=== PATIENT | female | born 1970 | race Caucasian/White ===

== ENCOUNTER 2020-03-27 22:49 | Emergency (ER) | payer OTHER ==
[~2020-03-27 22:49] MED LIST: CLINDAMYCIN HC300 MG PO
[2020-03-27 23:47] LABS: BASO # 0.1 10*3/uL (0.0-0.1); BASO % 0.6 % (0.0-1.0); EOS # 0.2 10*3/uL (0.0-0.4); EOS % 2.1 % (1.0-4.0); HEMATOCRIT 43.7 % (37.0-47.0); LYMPH # 3.9 10*3/uL (1.3-4.4); LYMPH % 35.9 % (27.0-41.0); MEAN CELL VOLUME 85.4 fl (81.0-99.0); MEAN CORPUSCULAR HGB 28.1 pg (27.0-31.0); MEAN PLATELET VOLUME 10.3 fl (9.6-12.3); MONO # 0.6 10*3/uL (0.1-1.0); MONO % 5.3 % (3.0-9.0); NEUT # 6.1 10*3/uL (2.3-7.9); NEUT % 55.8 % (47.0-73.0); PLATELET COUNT AUTOMATED 239 10*3/uL (130-400); RED BLOOD COUNT 5.12 10*6/uL (4.10-5.10); RED CELL DISTRI WIDTH 13.2 % (0-14.5); WHITE BLOOD COUNT 10.9 10*3/uL (4.8-10.8)
[2020-03-28 00:01] LABS: ACT PARTIAL THROMBO TIME 29.5 SECONDS (20.0-32.1); INTERNATIONAL NORM RATIO 0.9 (2.0-3.5)
[2020-03-28 00:04] LABS: ALBUMIN 3.9 gm/dl (3.1-4.5); ALKALINE PHOSPHATASE 95 U/L (45-117); BUN 16 mg/dl (7-24); CHLORIDE 104 mmol/L (98-107); CREATININE 0.95 mg/dL (0.55-1.02); POTASSIUM 3.5 mmol/L (3.5-5.1); SGOT/AST 15 IU/L (3-35); SGPT/ALT 27 U/L (12-78); SODIUM 134 mmol/L (136-145)
[2020-03-28 00:06] LABS: TROPONIN I < 0.015 ng/ml (<0.045)
[2020-03-28] MEDS ORDERED: KENALOG 0.1% OI15 GM T (00:54)
== END 2020-03-28 01:39 | disposition home or self-care (01) ==
LOC: ED 22:49
PROVIDERS: Emergency Medicine
DX: R05 Cough (principal); R53.1 Weakness; R07.9 Chest pain, unspecified; Z20.828 Contact with and (suspected) exposure to other viral communicable diseases; Z88.2 Allergy status to sulfonamides; Z88.6 Allergy status to analgesic agent

== ENCOUNTER 2020-10-07 05:44 | Emergency (ER) | payer OTHER ==
[~2020-10-07] VITALS: Ht 177.8 cm; Wt 126.2 kg
[~2020-10-07 05:44] MED LIST changes: +KENALOG 0.1% OI15 GM T
[2020-10-07 06:21] LABS: BASO # 0.1 10*3/uL (0.0-0.1); BASO % 0.6 % (0.0-1.0); EOS # 0.1 10*3/uL (0.0-0.4); EOS % 0.6 % (1.0-4.0); LYMPH # 4.2 10*3/uL (1.3-4.4); LYMPH % 29.2 % (27.0-41.0); MEAN CELL VOLUME 79.9 fl (81.0-99.0); MEAN CORPUSCULAR HGB 22.8 pg (27.0-31.0); MEAN CORPUSCULAR HGB CONC 28.5 g/dl (33.0-37.0); MEAN PLATELET VOLUME 9.7 fl (9.6-12.3); MONO # 0.8 10*3/uL (0.1-1.0); MONO % 5.4 % (3.0-9.0); NEUT # 8.9 10*3/uL (2.3-7.9); NEUT % 62.2 % (47.0-73.0); NUCLEATED RED BLOOD CELL 0.1 % (0.0-0.0); PLATELET COUNT AUTOMATED 327 10*3/uL (130-400); RED BLOOD COUNT 3.38 10*6/uL (4.10-5.10); RED CELL DISTRI WIDTH 18.5 % (0-14.5); WHITE BLOOD COUNT 14.3 10*3/uL (4.8-10.8)
[2020-10-07 06:22] LABS: ALBUMIN 3.3 gm/dl (3.1-4.5); ALKALINE PHOSPHATASE 66 U/L (45-117); BUN 20 mg/dl (7-24); CHLORIDE 102 mmol/L (98-107); CREATININE 0.87 mg/dL (0.55-1.02); POTASSIUM 4.1 mmol/L (3.5-5.1); SGOT/AST 35 IU/L (3-35); SGPT/ALT 46 U/L (12-78); SODIUM 134 mmol/L (136-145); TOTAL PROTEIN 6.8 gm/dL (6.4-8.2)
[2020-10-07 07:09] LABS: BILIRUBIN Negative (Negative); BLOOD Negative (Negative); CLARITY Clear (Clear); COLOR Yellow (Yellow); GLUCOSE Negative (Negative); KETONE Negative (Negative); LEUKO ESTERASE Negative (Negative); NITRITE Negative (Negative); SPECIFIC GRAVITY 1.015 (1.001-1.030); UROBILINOGEN 0.2 E.U./dl (0.0-1.0)
[2020-10-07 07:15] LABS: BACTERIA TRACE; EPITHELIAL CELLS 0-2; WBC 0-2 wbc/hpf (0-5)
[2020-10-07 11:31] VITALS: BP 111/64
[2020-10-07 11:45] VITALS: BP 138/69
[2020-10-07 12:00] VITALS: BP 117/63
[2020-10-07 12:15] VITALS: BP 111/64
[2020-10-07 12:30] VITALS: BP 101/51
[2020-10-07 13:30] VITALS: BP 113/62
== END 2020-10-07 15:01 | disposition short-term general hospital (02) ==
LOC: ED 05:44
PROVIDERS: Internal Medicine
DX: K92.2 Gastrointestinal hemorrhage, unspecified (principal); D50.0 Iron deficiency anemia secondary to blood loss (chronic); N28.1 Cyst of kidney, acquired; Z88.2 Allergy status to sulfonamides; Z88.8 Allergy status to other drugs, medicaments and biological substances; Z79.899 Other long term (current) drug therapy; Z79.2 Long term (current) use of antibiotics; Z95.818 Presence of other cardiac implants and grafts

== ENCOUNTER 2022-02-10 08:50 | Emergency (ER) | payer OTHER ==
[~2022-02-10] VITALS: Ht 165.1 cm; Wt 101.6 kg
[2022-02-10 09:19] LABS: BASO % 0.5 % (0.0-1.0); EOS # 0.1 10*3/uL (0.0-0.4); EOS % 0.8 % (1.0-4.0); LYMPH # 1.9 10*3/uL (1.3-4.4); LYMPH % 22.3 % (27.0-41.0); MEAN CELL VOLUME 83.9 fl (81.0-99.0); MEAN CORPUSCULAR HGB 27.9 pg (27.0-31.0); MEAN CORPUSCULAR HGB CONC 33.3 g/dl (33.0-37.0); MEAN PLATELET VOLUME 10.2 fl (9.6-12.3); MONO # 0.4 10*3/uL (0.1-1.0); MONO % 5.2 % (3.0-9.0); NEUT # 5.9 10*3/uL (2.3-7.9); NEUT % 70.8 % (47.0-73.0); PLATELET COUNT AUTOMATED 249 10*3/uL (130-400); RED BLOOD COUNT 4.77 10*6/uL (4.10-5.10); RED CELL DISTRI WIDTH 13.2 % (0-14.5); WHITE BLOOD COUNT 8.3 10*3/uL (4.8-10.8)
[2022-02-10] MEDS ORDERED: BUPRENORPHINE-1 EAC2 SL (09:24)
[2022-02-10] MEDS ORDERED: LEVOTHYROXINE50 MCG PO (09:25)
[2022-02-10] MEDS ORDERED: DIAZEPAM2 MG PO (09:25)
[2022-02-10] MEDS ORDERED: CETIRIZINE HYDR10 MG PO (09:25)
[2022-02-10] MEDS ORDERED: DOCUSATE SOD100 MG PO (09:26)
[2022-02-10] MEDS ORDERED: GABAPENTIN400 MG PO ×2 (09:26→09:27)
[2022-02-10] MEDS ORDERED: MULTIVITAMIN1 EACH PO (09:32)
[2022-02-10 09:33] LABS: ACT PARTIAL THROMBO TIME 29.6 SECONDS (20.0-32.1); INTERNATIONAL NORM RATIO 0.9 (2.0-3.5)
[2022-02-10] MEDS ORDERED: TRAZODONE150 MG PO (09:33)
[2022-02-10] MEDS ORDERED: LISINOPRIL40 MG PO (09:34)
[2022-02-10] MEDS ORDERED: HYDROCHLOROTH12.5 M2 PO (09:34)
[2022-02-10] MEDS ORDERED: CLOPIDOGREL75 MG PO (09:35)
[2022-02-10] MEDS ORDERED: CYCLOBENZAPRINE10 MG PO (09:35)
[2022-02-10] MEDS ORDERED: SIMVASTATIN40 MG PO (09:35)
[2022-02-10 09:36] LABS: ALKALINE PHOSPHATASE 98 U/L (45-117); BUN 21 mg/dl (7-24); CHLORIDE 105 mmol/L (98-107); CREATININE 0.91 mg/dL (0.55-1.02); POTASSIUM 4.3 mmol/L (3.5-5.1); SGOT/AST 16 IU/L (3-35); SGPT/ALT 15 U/L (12-78); SODIUM 137 mmol/L (136-145); TOTAL PROTEIN 7.9 gm/dL (6.4-8.2)
[2022-02-10] MEDS ORDERED: PANTOPRAZOLE SO40 MG PO (09:36)
[2022-02-10] MEDS ORDERED: ASPIRIN CHEWABL81 MG PO (09:36)
[2022-02-10 12:05] LABS: BILIRUBIN Negative (Negative); BLOOD Trace-Lysed (Negative); CLARITY Clear (Clear); COLOR Yellow (Yellow); GLUCOSE Negative (Negative); KETONE Negative (Negative); LEUKO ESTERASE Negative (Negative); NITRITE Negative (Negative)
[2022-02-10 12:15] LABS: WBC 0-2 wbc/hpf (0-5)
[2022-02-10] MEDS ORDERED: Ipratropium Brom3 ML INH (15:13)
[2022-02-10] MEDS ORDERED: PREDNISONE50 MG PO (15:13)
[2022-02-10] MEDS ORDERED: ZITHROMAX250 MG PO (15:13)
[2022-02-10] MEDS ORDERED: MUCINEX1200 M1 PO (15:13)
== END 2022-02-10 15:20 | disposition home or self-care (01) ==
LOC: ED 08:50
PROVIDERS: Student in an Organized Health Care Education/Training Program
DX: J40 Bronchitis, not specified as acute or chronic (principal); J44.9 Chronic obstructive pulmonary disease, unspecified; Z88.1 Allergy status to other antibiotic agents; Z88.6 Allergy status to analgesic agent; Z79.899 Other long term (current) drug therapy; Z79.82 Long term (current) use of aspirin

== ENCOUNTER → 2022-12-10 | Outpatient (CLI) | payer OTHER ==
[~2022-12-10] MED LIST changes: +ASPIRIN CHEWABL81 MG PO; +BUPRENORPHINE-1 EAC2 SL; +CETIRIZINE HYDR10 MG PO; +CLOPIDOGREL75 MG PO; +CYCLOBENZAPRINE10 MG PO; +DIAZEPAM2 MG PO; +DOCUSATE SOD100 MG PO; +GABAPENTIN400 MG PO; +HYDROCHLOROTH12.5 M2 PO; +Ipratropium Brom3 ML INH; +LEVOTHYROXINE50 MCG PO; +LISINOPRIL40 MG PO; +MUCINEX1200 M1 PO; +MULTIVITAMIN1 EACH PO; +PANTOPRAZOLE SO40 MG PO; +PREDNISONE50 MG PO; +SIMVASTATIN40 MG PO; +TRAZODONE150 MG PO; +ZITHROMAX250 MG PO
[2022-12-10 16:50] LABS: BASO # 0.1 10*3/uL (0.0-0.1); BASO % 0.7 % (0.0-1.0); EOS # 0.2 10*3/uL (0.0-0.4); EOS % 2.6 % (1.0-4.0); HEMATOCRIT 45.5 % (37.0-47.0); LYMPH # 2.6 10*3/uL (1.3-4.4); LYMPH % 34.7 % (27.0-41.0); MEAN CORPUSCULAR HGB 26.8 pg (27.0-31.0); MEAN CORPUSCULAR HGB CONC 32.3 g/dl (33.0-37.0); MEAN PLATELET VOLUME 9.7 fl (9.6-12.3); MONO # 0.5 10*3/uL (0.1-1.0); MONO % 6.2 % (3.0-9.0); NEUT # 4.2 10*3/uL (2.3-7.9); NEUT % 55.5 % (47.0-73.0); PLATELET COUNT AUTOMATED 243 10*3/uL (130-400); RED BLOOD COUNT 5.48 10*6/uL (4.10-5.10); RED CELL DISTRI WIDTH 13.6 % (0-14.5); WHITE BLOOD COUNT 7.6 10*3/uL (4.8-10.8)
[2022-12-10 17:04] LABS: ALKALINE PHOSPHATASE 93 U/L (46-116); BUN 8 mg/dl (9-23); CHLORIDE 107 mmol/L (98-107); POTASSIUM 3.9 mmol/L (3.4-5.1); SGPT/ALT 8 U/L (10-49); TOTAL PROTEIN 7.4 gm/dL (6.0-8.0)
[2022-12-11 06:08] LABS: HBSAG Negative (Negative); HEP B CORE AB, IGM Negative (Negative); HEPATITIS C ANTIBODY Non Reactive (Non Reactive)
== END | disposition home or self-care (01) ==
LOC: LAB 16:29
PROVIDERS: ATTEND Nurse Practitioner Family
DX: F11.20 Opioid dependence, uncomplicated (principal)

== ENCOUNTER → 2023-02-26 | Outpatient (CLI) | payer OTHER | END | disposition home or self-care (01) | LOC: RESCLI 01:36 | PROVIDERS: ATTEND Internal Medicine | DX: I10 Essential (primary) hypertension (principal); I25.10 Atherosclerotic heart disease of native coronary artery without angina pectoris; J45.909 Unspecified asthma, uncomplicated; R26.2 Difficulty in walking, not elsewhere classified; F17.210 Nicotine dependence, cigarettes, uncomplicated; M06.9 Rheumatoid arthritis, unspecified; M54.9 Dorsalgia, unspecified; K21.9 Gastro-esophageal reflux disease without esophagitis; E03.9 Hypothyroidism, unspecified; K59.00 Constipation, unspecified; F41.8 Other specified anxiety disorders; F22 Delusional disorders; Z98.890 Other specified postprocedural states; Z88.2 Allergy status to sulfonamides; Z79.82 Long term (current) use of aspirin; Z79.899 Other long term (current) drug therapy ==

== ENCOUNTER 2023-05-28 13:36 | Emergency (ER) | payer OTHER ==
[~2023-05-28] VITALS: Ht 165.1 cm; Wt 85.7 kg
[~2023-05-28 13:36] MED LIST changes: -CORRECTOL5 M1 PO; -DIAZEPAM10 M1 PO; -LEFLUNOMIDE20 M1 PO; -TRAZODONE HYDR300 MG PO
[2023-05-28] MEDS ORDERED: LEFLUNOMIDE20 M1 PO (14:01)
== END 2023-05-28 15:30 | disposition left against medical advice (07) ==
LOC: ED 13:36
DX: G83.4 Cauda equina syndrome (principal); Z88.2 Allergy status to sulfonamides; Z88.6 Allergy status to analgesic agent; Z79.899 Other long term (current) drug therapy; Z53.29 Procedure and treatment not carried out because of patient's decision for other reasons

== ENCOUNTER → 2023-05-28 | Outpatient (CLI) | payer OTHER ==
[~2023-05-28] MED LIST changes: +CORRECTOL5 M1 PO; +DIAZEPAM10 M1 PO; +LEFLUNOMIDE20 M1 PO; +TRAZODONE HYDR300 MG PO
== END | disposition home or self-care (01) ==
LOC: RESCLI 01:16
PROVIDERS: ATTEND Internal Medicine
DX: M54.9 Dorsalgia, unspecified (principal); R53.83 Other fatigue; E03.9 Hypothyroidism, unspecified; F41.8 Other specified anxiety disorders; K21.9 Gastro-esophageal reflux disease without esophagitis; I10 Essential (primary) hypertension; M06.9 Rheumatoid arthritis, unspecified; I25.10 Atherosclerotic heart disease of native coronary artery without angina pectoris; J45.909 Unspecified asthma, uncomplicated; F17.210 Nicotine dependence, cigarettes, uncomplicated; K59.00 Constipation, unspecified; Z98.890 Other specified postprocedural states; Z88.2 Allergy status to sulfonamides; Z88.8 Allergy status to other drugs, medicaments and biological substances; Z79.899 Other long term (current) drug therapy

== ENCOUNTER 2023-05-31 15:10 | Emergency (ER) | payer OTHER ==
[~2023-05-31] VITALS: Ht 165.1 cm; Wt 80.7 kg
[~2023-05-31 15:10] MED LIST changes: +LEFLUNOMIDE20 M1 PO
[2023-06-04] MEDS ORDERED: DIAZEPAM10 M1 PO (17:50)
[2023-06-04] MEDS ORDERED: TRAZODONE HYDR300 MG PO (17:52)
[2023-06-04] MEDS ORDERED: CORRECTOL5 M1 PO (17:58)
== END 2023-05-31 19:03 | disposition short-term general hospital (02) ==
LOC: ED 15:10
DX: G83.4 Cauda equina syndrome (principal); Z88.2 Allergy status to sulfonamides; Z88.8 Allergy status to other drugs, medicaments and biological substances; Z79.899 Other long term (current) drug therapy

== ENCOUNTER 2023-10-08 16:47 | Emergency (ER) | payer OTHER ==
[~2023-10-08] VITALS: Ht 165.1 cm; Wt 81.2 kg
[~2023-10-08 16:47] MED LIST changes: +CORRECTOL5 M1 PO; +DIAZEPAM10 M1 PO; +LEVOTHYROXINE50 MC1 PO; +TRAZODONE HYDR300 MG PO; +VALIUM10 MG PO; +ZETIA10 MG PO
[2023-10-08 17:49] LABS: BASO # 0.1 10*3/uL (0.0-0.1); BASO % 0.9 % (0.0-1.0); EOS # 0.2 10*3/uL (0.0-0.4); EOS % 2.1 % (1.0-4.0); HEMATOCRIT 38.5 % (37.0-47.0); LYMPH # 3.4 10*3/uL (1.3-4.4); LYMPH % 42.6 % (27.0-41.0); MEAN CELL VOLUME 87.7 fl (81.0-99.0); MEAN CORPUSCULAR HGB CONC 31.9 g/dl (33.0-37.0); MEAN PLATELET VOLUME 10.8 fl (9.6-12.3); MONO # 0.6 10*3/uL (0.1-1.0); MONO % 7.2 % (3.0-9.0); NEUT # 3.8 10*3/uL (2.3-7.9); NEUT % 47.2 % (47.0-73.0); PLATELET COUNT AUTOMATED 175 10*3/uL (130-400); RED BLOOD COUNT 4.39 10*6/uL (4.10-5.10); RED CELL DISTRI WIDTH 13.1 % (0-14.5)
[2023-10-08 18:12] LABS: ALKALINE PHOSPHATASE 77 U/L (46-116); BUN 12 mg/dl (9-23); CHLORIDE 108 mmol/L (98-107); TOTAL PROTEIN 6.9 gm/dL (6.0-8.0)
[2023-10-08 18:13] LABS: SGPT/ALT < 7 U/L (5-49)
== END 2023-10-08 18:33 | disposition home or self-care (01) ==
LOC: ED 16:47
PROVIDERS: Physician Assistant Medical
DX: M79.605 Pain in left leg (principal); M79.604 Pain in right leg; I25.10 Atherosclerotic heart disease of native coronary artery without angina pectoris; J44.9 Chronic obstructive pulmonary disease, unspecified; I10 Essential (primary) hypertension; E78.5 Hyperlipidemia, unspecified; I25.2 Old myocardial infarction; K21.9 Gastro-esophageal reflux disease without esophagitis; M19.90 Unspecified osteoarthritis, unspecified site; Z88.2 Allergy status to sulfonamides; Z88.6 Allergy status to analgesic agent; Z98.890 Other specified postprocedural states; Z90.49 Acquired absence of other specified parts of digestive tract; Z95.5 Presence of coronary angioplasty implant and graft; F17.200 Nicotine dependence, unspecified, uncomplicated; F12.90 Cannabis use, unspecified, uncomplicated